=== PATIENT | female | born 1980 | race Two or more races ===

== ENCOUNTER → 2017-05-27 | Outpatient (CLI) | payer OTHER ==
--- NOTE | 2017-05-28 10:26 | HKNOTE ---
DATE OF SERVICE: 05/27/2017 CHIEF COMPLAINT: Right knee pain. HISTORY OF PRESENT ILLNESS: This is a 36-year-old female who is complaining of a few-month history of right knee pain. She describes occasional popping and locking of her knee. She denies any insta bility. She denies any history of trauma. The pain is mostly on the inside and back of her knee. She does not use any assist devices or braces. She does not take any pain medications. She denies any groin or back pain. She has no other complaints. GAIT: Nonantalgic gait, no use of assist devices. RIGHT KNEE EXAMINATION: Neutral alignment, tender over the medial joint line, 0 to 130 degrees pain less range of motion, stable to varus/valgus stress, positive Ian's, negative Mark, negative anterior drawer, negative posterior drawer. There is a Jiang's cyst in the popliteal fossa. Motor strength 5/5 hamstrings, quadriceps, tibialis anterior, gastrocsoleus. X-RAYS RIGHT KNEE: Three views of the right knee do not demonstrate any abnormalities. IMPRESSION: A 36-year-old female with right knee pain, positive Ian's test and a Jiang's cyst on examination. PLAN: We will request authorization for right knee MRI. She will return following her MRI to go ov er the results. Dictated By: CASEY POLK/ARIAS Conf#: [id number] DID#: [id number]
== END | disposition home or self-care (01) ==
LOC: HKI 14:54
PROVIDERS: ATTEND Orthopaedic Surgery Adult Reconstructive Orthopaedic Surgery
DX: M25.561 Pain in right knee (principal); M71.21 Synovial cyst of popliteal space [Baker], right knee
CPT/HCPCS: G0463

== ENCOUNTER → 2017-07-16 | Outpatient (CLI) | payer OTHER ==
--- NOTE | 2017-07-16 23:38 | HKNOTE ---
DATE OF SERVICE: 07/16/2017 CHIEF COMPLAINT: Right knee pain. HISTORY OF PRESENT ILLNESS: This is a 37-year-old female who is here to go over her MRI results. S he is complaining of pain in the right knee. She has difficulty with her activities of daily living . She states that the pain is intermittent. She does not have any instability. She denies any loc georgie or catching. She does not use any braces or assistive devices. IMAGING: MRI right knee, there is chondromalacia of the patella, the menisci, cruciate and collater al ligaments are intact, no other abnormalities are seen. IMPRESSION: A 37-year-old female with right knee chondromalacia of patella. PLAN: We will request authorization for physical therapy of the right knee. She will follow up as needed in the future. Dictated By: CASEY POLK/ARIAS Conf#: [id number] DID#: [id number]
== END | disposition home or self-care (01) ==
LOC: HKI 15:48
PROVIDERS: ATTEND Orthopaedic Surgery Adult Reconstructive Orthopaedic Surgery
DX: M25.561 Pain in right knee (principal); M22.41 Chondromalacia patellae, right knee
CPT/HCPCS: G0463